=== PATIENT | male | born 1950 | race Caucasian/White ===

== ENCOUNTER 2025-03-16 18:13 | Inpatient (IN) | payer OTHER ==
[~2025-03-16] VITALS: Ht 175.3 cm; Wt 89.4 kg
[2025-03-16 18:30] VITALS: PULSE 59; RESP 12; O2SAT 94
--- NOTE | 2025-03-16 19:24 | DVH ---
CHEST RADIOGRAPH Indication: chest pain Technique: Single frontal view of the chest was obtained Comparison: None FINDINGS: Lines and Tubes: None Lungs: No focal consolidation. Pleura: No effusion. No pneumothorax. Cardiomediastinal contours: Unremarkable Bones: No acute osseous abnormality. IMPRESSION: No acute cardiopulmonary disease.
[2025-03-16 19:25] VITALS: PULSE 69
[2025-03-16 19:35] LABS: Hematocrit 47.0 % (41.0-53.0); Hemoglobin 15.6 g/dL (13.5-17.5); Mean Corpuscular Hemoglobin 29.8 pg (28.0-32.0); Mean Corpuscular Volume 89.7 fL (80.0-100.0); Nucleated Red Blood Cells % 0.1 %
--- NOTE | 2025-03-16 19:47 | ED.PDOC ---
History of Present Illness HPI Comments 74-year-old male presents with the ED via EMS with a chief complaint of chest pain onset 1 day. Per EMS, patient was transferred from [facility] due to elevated troponin levels of 76. Upon ED arrival, patient states he is currently not experiencing any chest pain or shortness of breath. He was experiencing chest pain last night, went to [facility]. For the past 3 weeks, patient has been experiencing chest tightness, jaw tightness, shortness of breath with exertion. Denies fever, chills, nausea, vomiting, diarrhea, dizziness, headache, Blurred vision, numbness/ tingling, leg swelling. No other symptoms or modifying factors present at this time PHYSICAL EXAM GEN: Normal general appearance. NAD. HEAD: NCAT. EYES: PERRL, EOMI, with no strabismus. ENMT: TMs, nares, and OP normal. Mucous membranes moist. Normal gums, mucosa, palate. NECK: Supple, with no masses. CV: Regular rate and rhythm, no murmurs LUNGS: No respiratory distress. Clear to auscultation bilaterally, no no wheezing rhonchi or rales ABD: Soft, nontender, nondistended., normal bowel sounds, no masses or organomegaly. : (deferred) SKIN: Warm, appropriate color for ethnicity. No skin rashes or abnormal lesions. MSK: Normal extremities & spine. NEURO: Moving all extremities symmetrically. Normal muscle strength and tone. REVIEW OF SYSTEMS: General: No fever, no chills, or fatigue HEENT: No sore throat, no earache, no congestion, no neck pain. Cardiac: chest pain. No palpitations. Lungs: shortness of breath. no cough. GI: No nausea, no vomiting, no diarrhea, no constipation, no abdominal pain : No dysuria, frequency, or urgency. No hematuria. Musculoskeletal: No joint pain , no joint swelling, no extremity edema. Skin: No rash, no itching. Neuro: No headache, no dizziness, no weakness (And as sated in HPI) Chief Complaint: Chest Pain Time Seen by MD: 19:35 Reviewed Notes: Medications, Allergies Allergies: Coded Allergies: Penicillins (Verified Allergy, Unknown, 03/16/25) Mode of Arrival: EMS Severity: Moderate Timing: Days Duration: Since onset Prehospital treatment: None Past Medical History PAST MEDICAL HISTORY: HTN Surgical History: Denies all surgeries Family History Family History: Reviewed,noncontributory to illness, No family hx of Cancer, No family hx of DM, No family hx of Heart joe, No family hx of HTN, No family hx ofKidney joe, No family hx of Liver joe, No family hx of Lung joe, No family hx of Stroke Social History Smoker: Quit Greater Than 1 Year, Cigarettes Alcohol: Denies ETOH Use Drugs: Denies Drug Use Lives In: Assisted Care Was a procedure done? Was a procedure done?: No Differential Dx Considerations may include: Differential diagnoses considered include acute ischemic coronary syndrome, aortic dissection, cardiac tamponade, mediastinitis, pulmonary embolus, pneumothorax, tension pneumothorax, esophageal rupture, coronary artery vasospasm, myocarditis, pericarditis, pneumonia, pulmonary edema, esophageal tear, pancreatitis, aortic stenosis, dilated cardiomyopathy, hypertrophic cardiomyopathy, mitral valve prolapse, malignancy, pleuritis, pneumomediastinum, primary pulmonary hypertension, cholecystitis, esophageal spasm, esophagus, gastritis, GERD, peptic ulcer disease, costochondritis, fibromyalgia, rib fracture, herpes zoster, radicular syndromes, thoracic outlet syndrome, somatization. X-Ray, Labs, Meds, VS Vital Signs Date Time Temp Pulse Resp B/P (MAP) Pulse Ox O2 Delivery O2 Flow Rate FiO2 03/16/25 19:46 68 03/16/25 19:25 69 Room Air* 0 21 03/16/25 18:44 66 03/16/25 18:34 98.4 63 14 156/76 99 98.4 03/16/25 18:30 59 11 145/56 (85) 94 03/16/25 18:30 98.0 59 12 145/56 (85) 94 98.0 03/16/25 18:30 59 12 94 Room Air* 0 21 Lab Test 03/16/25 19:09 Range/Units White Blood Count 9.4 4.4-10.8 10^3/uL Red Blood Count 5.24 4.5-5.90 10^6/uL Hemoglobin 15.6 13.5-17.5 g/dL Hematocrit 47.0 41.0-53.0 % Mean Corpuscular Volume 89.7 80.0-100.0 fL Mean Corpuscular Hemoglobin 29.8 28.0-32.0 pg Mean Corpuscular Hemoglobin Concent 33.2 32.0-36.0 g/dL Red Cell Distribution Width 15.2 H 11.8-14.3 % Platelet Count 233 140-450 10^3/uL Mean Platelet Volume 7.2 6.9-10.8 fL Neutrophils (%) (Auto) 63.2 37.0-80.0 % Lymphocytes (%) (Auto) 24.6 10.0-50.0 % Monocytes (%) (Auto) 7.0 0.0-12.0 % Eosinophils (%) (Auto) 4.4 0.0-7.0 % Basophils (%) (Auto) 0.8 0.0-2.0 % Neutrophils # (Auto) 6.0 1.6-8.6 10 ^3/uL Lymphocytes # (Auto) 2.3 0.4-5.4 10 ^3/uL Monocytes # (Auto) 0.7 0-1.3 10 ^3/uL Eosinophils # (Auto) 0.4 0-0.8 10 ^3/uL Basophils # (Auto) 0.1 0-0.2 10 ^3/uL Nucleated Red Blood Cells 0.1 % Sodium Level Pending Potassium Level Pending Chloride Level Pending Carbon Dioxide Level Pending Anion Gap Pending Blood Urea Nitrogen Pending Creatinine Pending Glomerular Filtration Rate Calc Pending BUN/Creatinine Ratio Pending Serum Glucose Pending Calcium Level Pending Total Bilirubin Pending Aspartate Amino Transferase (AST) Pending Alanine Aminotransferase (ALT) Pending Alkaline Phosphatase Pending Troponin I High Sensitivity Pending B-Type Natriuretic Peptide Pending Total Protein Pending Albumin Pending Time of 1ST Reevaluation: 20:05 Reevaluation 1ST: Unchanged Patient Education/Counseling: Diagnosis, Treatment, Need For Follow Up Family Education/Counseling: No Family Present SEPSIS Sepsis Screen Date sepsis recognized/suspect: Mar 16, 2025 Time Sepsis recognized/suspect: 1814 Recent Procedure: No On Antibiotic Therapy: No Respiratory Rate >20: No Heart Rate >90: No Temp<36 C (96.8 F) or >38.3 C: No SBP <90 or MAP <65 mmHG: No New Acute Mental Status Change: No Is the patient on CPAP, BIPAP,: No Physician Orders Chest Portable (03/16/25 18:45) Comprehensive Metabolic Panel (03/16/25 18:45) B-Type Natriuretic Peptide (03/16/25 18:45) Urinalysis (03/16/25 18:45) Troponin-I Hs (03/16/25 18:45) Electrocardigram (03/16/25 18:45) Troponin-I Hs (03/16/25 19:45) Troponin-I Hs (03/16/25 21:45) Electrocardigram (03/16/25 19:45) Electrocardigram (03/16/25 21:45) Basic Metabolic Panel (03/16/25 18:45) Vital Signs Date Time Temp Pulse Resp B/P (MAP) Pulse Ox O2 Delivery O2 Flow Rate FiO2 03/16/25 19:46 68 03/16/25 19:25 69 Room Air* 0 21 03/16/25 18:44 66 03/16/25 18:34 98.4 63 14 156/76 99 98.4 03/16/25 18:30 59 11 145/56 (85) 94 03/16/25 18:30 98.0 59 12 145/56 (85) 94 98.0 03/16/25 18:30 59 12 94 Room Air* 0 21 Laboratory Tests Test 03/16/25 19:09 White Blood Count 9.4 10^3/uL (4.4-10.8) Departure 1 Departure Time of Disposition: 19:56 Impression: Primary Impression: Chest pain Additional Impression: Elevated troponin Disposition: ADMITTED INPATIENT Condition: Stable Comments MDM: [age] year Male transferred from [facility] for elevated troponin, Cardiology consultation. Patient admitted to hospitalist service for further treatment, evaluation and monitoring. Extensive evaluation was performed in attempt to identify or rule out: (See differential diagnosis section) The following tests were ordered, and results were reviewed by me and discussed with patient: (See diagnostic results section) The following test were independently interpreted by me: EKG, chest x-ray-no acute disease I reviewed and agreed with the following test results read by other providers: Chest tube for I reviewed the following notes from the pt's past medical encounters: Encounter today at [facility] Additional information was gathered from interviewing the following independent historians: N/A Discussion of management or test interpretation with external physician/other qualified health care transition coordinator: N/A Addressed an acute or chronic illness that poses a threat to life or bodily function: Chest Pain concerning for ACS Decision regarding hospitalization or escalation of hospital level of care: Risk and benefits of admission for further treatment of patient's condition was considered. Due to patient's current clinical condition, high risk of decline and poor outcome if discharged and need for further inpatient management and monitoring, patient will be admitted to the hospital. Critical Care Note Critical Care Time?: No Stability Stability form required: No Heart Score Heart Score: Heart Score Response (Comments) Value History N/A 0 EKG N/A 0 Age N/A 0 Risk Factors N/A 0 Troponin N/A 0 Total 0 I personally scribed for BEVERLY MAURO MD ([email or web address]) on 03/16/25 at 19:47. Electronically submitted by Jessica Malik ([email or web address]). BEVERLY MAURO MD Mar 16, 2025 19:47
[2025-03-16 19:59] LABS: Alanine Aminotransferase 18 U/L (7-40); Albumin 3.9 g/dL (3.2-4.8); Alkaline Phosphatase 56 U/L (46-116); Anion Gap 12 (5-15); BUN/Creatinine Ratio 9.4 (10.0-20.0); Bilirubin, Total 0.7 mg/dL (0.2-1.0); Blood Urea Nitrogen 11 mg/dL (9-23); Calcium 9.1 mg/dL (8.7-10.4); Carbon Dioxide 23 mmol/L (20-31); Glucose 93 mg/dL (74-106); Potassium 3.8 mmol/L (3.5-5.1); Sodium 143 mmol/L (136-145); Total Protein 6.5 g/dL (5.7-8.2)
[2025-03-16 20:01] LABS: Chloride 108 mmol/L (98-107)
[2025-03-16] MEDS ORDERED: hydrALAZINE HCL 20 MG/ML VL IV PRN (22:30)
[2025-03-16] MEDS ORDERED: NITROGLYCERIN 0.4 MG SL TAB SL PRN (22:30)
[2025-03-16] MEDS ORDERED: HYDROcodone-ACET 5/325MG TAB PO PRN (22:30)
[2025-03-16] MEDS ORDERED: MORPHINE SULFATE INJ 2 MG/ml SYRG IV PRN (22:30)
[2025-03-16] MEDS ORDERED: ACETAMINOPHEN 325 MG TAB PO PRN (22:30)
[2025-03-16 23:08] LABS: INR 1.17 (0.9-1.15); Prothrombin Time 12.2 sec (9.3-11.8)
[2025-03-17] VITALS (16 sets, daily range): BP systolic 110–154; BP diastolic 57–87; PULSE 63–91; RESP 13–19; TEMP 98–98.2; O2SAT 93–98
[2025-03-17] MEDS ORDERED: IPRATROPIUM BROM 0.5 MG/2.5ML INH SOL NEB PRN (00:45)
[2025-03-17] MEDS ORDERED: ALBUTEROL SULF 2.5 MG/0.5ML(0.5%) NEB SOLN NEB PRN (00:45)
--- NOTE | 2025-03-17 00:45 | DVHHP2 ---
KIM WOOTEN DELICATESSEN GOODS STOCK CLERK 03/17/25 0045: History of Present Illness Reason for Visit: Chest pain History of Present Illness 74-year-old male with past medical history of hypertension, hyperlipidemia, enlarged prostate presents with complaints of chest pain radiating to the jaw x3 weeks. Patient was transferred from [facility] as higher level of care for cardiac evaluation for elevated troponin levels and chest pain. Chest pain has remained constant pressure. 10/12. During the emergency department evaluation troponins elevated 180/181/179. The patient denies any fevers, chills, dizziness, syncope, shortness of breath, palpitations, nausea, vomiting, leg swelling. Is not being followed by Cardiology. Cardiovascular: HTN, hyperipidemia Smoke: Quit ALCOHOL: occassional (2-3 beers per day) Lives: with Family Review of Systems Constitutional: Yes: Fever, Chills, Sweats, Weakness, Malaise, Other Eyes: Pain, Vision change, Conjunctivae inflammation, Eyelid inflammation, Other, Redness ENT: Ear pain, Ear discharge, Nose pain, Nose discharge, Nose congestion, Mouth pain, Mouth swelling, Throat pain, Throat swelling, Other Respiratory: Cough, Dry, Shortness of breath, SOB with excertion, Wheezing, Hemoptysis, Pleuritic Pain, Sputum, Wheezing, Other Cardiovascular: Chest Pain, Other (Left-sided jaw pain); No: Palpitations, Orthopnea, Paroxysmal Noc. Dyspnea, Edema, Lt Headedness Gastrointestinal: No: Nausea, Vomiting, Abdominal Pain, Diarrhea, Constipation, Melena, Hematochezia, Other Genitourinary: No Dysuria, No Frequency, No Incontinence, No Hematuria, No Retention, No Other Musculoskeletal: No: other, neck pain, shoulder pain, arm pain, back pain, hand pain, leg pain, foot pain Skin: No: Rash, Lesions, Jaundice, Bruising, Other Neurological: No: Weakness, Numbness, Incoordination, Change in speech, Confusion, Seizures, Other Allergies: Coded Allergies: Penicillins (Verified Allergy, Unknown, 03/16/25) Medications Current Medications Medications Dose Ordered Sig/Rick Route Start Time Stop Time Status Last Admin Dose Admin Nitroglycerin 0.4 mg Q5MINP PRN SL 03/16/25 22:30 Morphine Sulfate 2 mg Q30M PRN IV 03/16/25 22:30 Acetaminophen 650 mg Q6HPRN PRN PO 03/16/25 22:30 Acetaminophen/ Hydrocodone Bitart 1 tab Q6HP PRN PO 03/16/25 22:30 Aspirin 81 mg DAILY PO 03/17/25 10:00 Hydralazine HCl 10 mg Q4HPRN PRN IV 03/16/25 22:30 Exam Vital Signs Vital Signs Date Time Temp Pulse Resp B/P (MAP) Pulse Ox O2 Delivery O2 Flow Rate FiO2 03/16/25 22:00 63 12 128/54 (78) 96 03/16/25 20:00 98.1 98.1 03/16/25 19:25 Room Air* 0 21 General Appearance: Alert, Oriented X3, Cooperative, mild distress HEENT: Atraumatic, PERRLA, EOMI Respiratory: Clear to auscultation, Normal air movement Cardiovascular: Regular rate, Normal S1, Normal S2 Abdominal: Normal bowel sounds, Soft, No tenderness Extremities: No clubbing, No cyanosis, No edema, Normal pulses Skin: No breakdown Neuro: Normal speech, Strength at 5/5 X4 ext, Normal tone Psych/Mental Status: Mental status NL, Mood NL Labs/Xrays Labs Test 03/16/25 22:00 03/16/25 19:09 Range/Units Prothrombin Time 12.2 H 9.3-11.8 sec Prothrombin Time INR 1.17 H 0.9-1.15 Troponin I High Sensitivity 179 *H </=54 ng/L White Blood Count 9.4 4.4-10.8 10^3/uL Red Blood Count 5.24 4.5-5.90 10^6/uL Hemoglobin 15.6 13.5-17.5 g/dL Hematocrit 47.0 41.0-53.0 % Mean Corpuscular Volume 89.7 80.0-100.0 fL Mean Corpuscular Hemoglobin 29.8 28.0-32.0 pg Mean Corpuscular Hemoglobin Concent 33.2 32.0-36.0 g/dL Red Cell Distribution Width 15.2 H 11.8-14.3 % Platelet Count 233 140-450 10^3/uL Mean Platelet Volume 7.2 6.9-10.8 fL Neutrophils (%) (Auto) 63.2 37.0-80.0 % Lymphocytes (%) (Auto) 24.6 10.0-50.0 % Monocytes (%) (Auto) 7.0 0.0-12.0 % Eosinophils (%) (Auto) 4.4 0.0-7.0 % Basophils (%) (Auto) 0.8 0.0-2.0 % Neutrophils # (Auto) 6.0 1.6-8.6 10 ^3/uL Lymphocytes # (Auto) 2.3 0.4-5.4 10 ^3/uL Monocytes # (Auto) 0.7 0-1.3 10 ^3/uL Eosinophils # (Auto) 0.4 0-0.8 10 ^3/uL Basophils # (Auto) 0.1 0-0.2 10 ^3/uL Nucleated Red Blood Cells 0.1 % Sodium Level 143 136-145 mmol/L Potassium Level 3.8 3.5-5.1 mmol/L Chloride Level 108 H 98-107 mmol/L Carbon Dioxide Level 23 20-31 mmol/L Anion Gap 12 5-15 Blood Urea Nitrogen 11 9-23 mg/dL Creatinine 1.17 0.700-1.30 mg/dL Glomerular Filtration Rate Calc 65 >90 mL/min BUN/Creatinine Ratio 9.4 L 10.0-20.0 Serum Glucose 93 74-106 mg/dL Calcium Level 9.1 8.7-10.4 mg/dL Total Bilirubin 0.7 0.2-1.0 mg/dL Aspartate Amino Transferase (AST) 18 13-40 U/L Alanine Aminotransferase (ALT) 18 7-40 U/L Alkaline Phosphatase 56 46-116 U/L B-Type Natriuretic Peptide 71.30 0-100 pg/mL Total Protein 6.5 5.7-8.2 g/dL Albumin 3.9 3.2-4.8 g/dL SEPSIS Sepsis Screen Date sepsis recognized/suspect: Mar 16, 2025 Time Sepsis recognized/suspect: 1814 Recent Procedure: No On Antibiotic Therapy: No Respiratory Rate >20: No Heart Rate >90: No Temp<36 C (96.8 F) or >38.3 C: No SBP <90 or MAP <65 mmHG: No New Acute Mental Status Change: No Is the patient on CPAP, BIPAP,: No Physician Orders Chest Portable (03/16/25 18:45) Urinalysis (03/16/25 18:45) Electrocardigram (03/16/25 18:45) Electrocardigram (03/16/25 19:45) Electrocardigram (03/16/25 21:45) Admit (03/16/25:) Code Status (03/16/25:) Vital Signs .PER UNIT PROTOCOL (03/16/25:) Review Orders With Adm.Md (03/16/25:) Notify Md Of Changes From Base (03/16/25:) Advance Directive (03/16/25:) Patient Condition (03/16/25:) Allergies (03/16/25:) Nitroglycerin Sublingual (Ntrostat Subli (03/16/25:) Morphine Sulfate Injection (03/16/25) Stat Ekg For Chest Pain (03/16/25:) Notify Md Of Changes From Base (03/16/25:) Bias Cutter Helper For 24 Hours (03/16/25:) Emergency Dysrhythmia Protocol (03/16/25:) Rhythm Strips Once Every Shift (03/16/25:) Oxygen By Nasal Cannula (03/16/25:) Basic Metabolic Panel (03/17/25 05:00) Basic Metabolic Panel (03/18/25 05:00) Basic Metabolic Panel (03/19/25 05:00) Basic Metabolic Panel (03/20/25 05:00) Basic Metabolic Panel (03/21/25 05:00) Complete Blood Count (03/17/25 05:00) Complete Blood Count (03/18/25 05:00) Complete Blood Count (03/19/25 05:00) Complete Blood Count (03/20/25 05:00) Complete Blood Count (03/21/25 05:00) Troponin-I Hs (03/16/25 06:00) Troponin-I Hs (03/16/25 14:00) Echo 2d Mode Cardiac Dop (03/16/25:) * Cardiology Consult (03/16/25:) Acetaminophen Tablet (Tylenol Tablet) (03/16/25 22:30) Hydrocodone-Acet 5/325mg Tab ([place] 32 (03/16/25:30) Npo After Midnight (03/16/25 22:19) Npo (Nothing By Mouth) Diet (03/17/25 Breakfast) Aspirin Tablet (03/17/25 10:00) Hydralazine Injection (Apresoline Inject (03/16/25 22:30) Atorvastatin (Lipitor) (03/17/25 22:00) Tamsulosin Hydrochloride (Flomax) (03/17/25 18:00) Albuterol Medneb (Ventolin Medneb) (03/17/25 00:45) Ipratropium Medneb (Atrovent Medneb) (03/17/25 00:45) Vital Signs Date Time Temp Pulse Resp B/P (MAP) Pulse Ox O2 Delivery O2 Flow Rate FiO2 03/16/25 22:00 63 12 128/54 (78) 96 03/16/25 21:43 73 03/16/25 20:00 98.1 69 12 138/70 (92) 95 98.1 03/16/25 19:46 68 03/16/25 19:25 69 Room Air* 0 21 03/16/25 18:44 66 03/16/25 18:34 98.4 63 14 156/76 99 98.4 03/16/25 18:30 59 11 145/56 (85) 94 03/16/25 18:30 98.0 59 12 145/56 (85) 94 98.0 03/16/25 18:30 59 12 94 Room Air* 0 21 Laboratory Tests Test 03/16/25 19:09 White Blood Count 9.4 10^3/uL (4.4-10.8) Assessment/Plan Assessment/Plan Chest pain Elevated troponin Hypertension Plan Admit telemetry Cardiology consult. Echocardiogram. ASA, statin. As needed antihypertensives for optimal BP management. Physical therapy evaluation GI PPX Protonix / DVT PPX Lovenox Plan discussed with: Patient My Orders Orders - KIM WOOTEN NP Procedure Category Date Status Time Admit ADMIT 03/16/25 Transmitted 22:19 Code Status CODE 03/16/25 Transmitted 22:19 Vital Signs [facility] 03/16/25 In Process 22:19 Review Orders With LONNY 03/16/25 In Process Adm. 22:19 Notify Of Changes LONNY 03/16/25 In Process From Base 22:19 Advance Directive [facility] 03/16/25 In Process 22:19 Patient Condition ORDERS 03/16/25 Transmitted 22:19 Allergies LONNY 03/16/25 In Process 22:19 Nitroglycerin PHA 03/16/25 In Process Sublingual (Ntrostat 22:30 Morphine Sulfate PHA 03/16/25 In Process Injection 22:30 Stat Ekg For Chest [facility] 03/16/25 In Process Pain 22:19 Notify Of Changes [facility] 03/16/25 In Process From Base 22:19 Bias Cutter Helper For [facility] 03/16/25 In Process 24 Hours 22:19 Emergency Dysrhythmia [facility] 03/16/25 In Process Protocol 22:19 Rhythm Strips Once [facility] 03/16/25 In Process Every Shift 22:19 Oxygen By Nasal RT 03/16/25 Transmitted Cannula 22:19 Basic Metabolic Panel LAB 03/17/25 Logged 05:00 Basic Metabolic Panel LAB 03/18/25 Verified 05:00 Basic Metabolic Panel LAB 03/19/25 Verified 05:00 Basic Metabolic Panel LAB 03/20/25 Verified 05:00 Basic Metabolic Panel LAB 03/21/25 Verified 05:00 Complete Blood Count LAB 03/17/25 Logged 05:00 Complete Blood Count LAB 03/18/25 Verified 05:00 Complete Blood Count LAB 03/19/25 Verified 05:00 Complete Blood Count LAB 03/20/25 Verified 05:00 Complete Blood Count LAB 03/21/25 Verified 05:00 Troponin-I Hs LAB 03/16/25 Logged 06:00 Troponin-I Hs LAB 03/16/25 Logged 14:00 Echo 2d Mode Cardiac US 03/16/25 Logged DOP 22:19 * Cardiology Consult CONS 03/16/25 Transmitted 22:19 Acetaminophen Tablet PHA 03/16/25 In Process (Tylenol Tablet) 22:30 Hydrocodone-Acet PHA 03/16/25 In Process 5/325mg Tab ([place] 22:30 Npo After Midnight LONNY 03/16/25 In Process 22:19 Npo (Nothing By DIET 03/17/25 Transmitted Mouth) Diet Breakfast Aspirin Tablet PHA 03/17/25 In Process 10:00 Hydralazine Injection PHA 03/16/25 In Process (Apresoline Inject 22:30 Atorvastatin (Lipitor) PHA 03/17/25 Verified 22:00 Tamsulosin PHA 03/17/25 Verified Hydrochloride (Flomax) 18:00 Albuterol Medneb PHA 03/17/25 Verified (Ventolin Medneb) 00:45 Ipratropium Medneb PHA 03/17/25 Verified (Atrovent Medneb) 00:45 Date of Service: Mar 17, 2025 Billing Provider: NADEEM DIAMOND MD Common Visit Codes: NOT BILLABLE NADEEM DIAMOND MD 03/17/25 1159: Review of Systems Allergies: Coded Allergies: Penicillins (Verified Allergy, Unknown, 03/16/25) Additional Comments Additional Comments Additional Comments Patient is seen and evaluated by me earlier today and discussed with the selenium plant operator. Patient is seen evaluated and admitted by nurse practitioner egg breaker for exertional angina and elevated troponins. I agree with his evaluation, documentation, assessment and care plan as outlined. KIM WOOTEN DELICATESSEN GOODS STOCK CLERK Mar 17, 2025 00:45 NADEEM DIAMOND MD Mar 17, 2025 11:59
[2025-03-17 05:47] LABS: Hematocrit 48.4 % (41.0-53.0); Hemoglobin 16.4 g/dL (13.5-17.5); Mean Corpuscular Hemoglobin 30.4 pg (28.0-32.0); Mean Corpuscular Volume 89.5 fL (80.0-100.0); Nucleated Red Blood Cells % 0.1 %
[2025-03-17 05:57] LABS: Calcium 9.4 mg/dL (8.7-10.4); Chloride 106 mmol/L (98-107); Potassium 3.7 mmol/L (3.5-5.1); Sodium 143 mmol/L (136-145)
[2025-03-17 05:58] LABS: Anion Gap 12 (5-15); Carbon Dioxide 25 mmol/L (20-31)
[2025-03-17 06:03] LABS: BUN/Creatinine Ratio 6.7 (10.0-20.0); Glucose 94 mg/dL (74-106)
[2025-03-17 06:11] LABS: Blood Urea Nitrogen 8 mg/dL (9-23)
--- NOTE | 2025-03-17 07:11 | ECG ---
[facility] Test Date: 2025-03-16 Test Time: 19:46:58 Pat Name: RAFI SALOMON Department: ED Room: 0217T Gender: M Production Dispatcher: FELY : 1950 Requested By: ARLETH LOPEZ Order Number: [id number] Reading MD: Rachid Hill Measurements Intervals [place] Rate: 68 P: 33 ME: 155 QRS: 9 QRSD: 86 T: 6 QT: 412 QTc: 439 Interpretive Statements Sinus rhythm Borderline T wave abnormalities Electronically Signed On 03-18-2025 15:44:59 PST by Rachid Hill Please click the below link to view image of tracing.
--- NOTE | 2025-03-17 07:11 | ECG ---
[facility] Test Date: 2025-03-16 Test Time: 21:43:02 Pat Name: RAFI SALOMON Department: ED Room: 0217T Gender: M Skiagrapher: FELY : 1950 Requested By: ARLETH LOPEZ Order Number: [id number] Reading MD: Rachid Hill Measurements Intervals [place] Rate: 73 P: 36 ID: [id number] QRS: 28 QRSD: 87 T: 31 QT: 410 QTc: 452 Interpretive Statements Sinus rhythm Borderline T wave abnormalities Electronically Signed On 03-18-2025 15:45:12 PST by Rachid Hill Please click the below link to view image of tracing.
[2025-03-17 07:38] LABS: Urine Protein, UAD Negative (Negative)
[2025-03-17 11:21] LABS: Triglycerides 143.0 mg/dL (< 150)
[2025-03-17 11:22] LABS: Magnesium 2.3 mg/dL (1.6-2.6)
[2025-03-17 11:23] LABS: Cholesterol 124.0 mg/dL (< 200)
[2025-03-17 11:24] LABS: HDL Cholesterol 37.0 mg/dL (40-59)
--- NOTE | 2025-03-17 11:30 | DVHCONRES ---
Date Seen: Mar 17, 2025 Resident Creating Document: ROSE ZHOU RESIDENT Reason for Consultation Chest pain and elevated troponins History of Present Illness RAFI SALOMON is a 74 years old male with a PMH of HTN, HLD, enlarged prostate presented to the ED with the chief complaints of chest pain for 2days. Patient reported he has been having on and off chest pain and shortness of breath for last 2-3 weeks, thought of asthma exacerbation and then went to clinic to change asthma medication but no relief for last 2 days patient has been having substernal chest pain which is dull aching radiating to jaw associated with the shortness of breath but no aggravating factors relieved by taking rest so which prompted him to visit ED. The patient initially went to [facility], they sent here for higher level of care due to elevated troponins. Arrival to [facility] ED Troponins 180 > 181 > 179 > 149 and BNP 71 and ordered echocardiogram. EKG showed no significant ischemic changes. PMH: As above PSH: Noncontributory Social history: Lives at home. Denies smoking, alcohol and other drug abuse: ( patient is ex-smoker used to smoke 1-2 pack per day for 30 years but quit for 15 years ) Family history: Father had heart disease Allergies: Penicillin Home medications: Verapamil 120 mg, Lipitor 10 mg, zinc ROS: Patient seen and examined at the bedside. Patient is currently reporting dull chest pain and mild shortness of breath which is improved since admission but rest of ROS is negative. Allergies: Coded Allergies: Penicillins (Verified Allergy, Unknown, 03/16/25) Current Medications Current Medications Medications (Trade) Dose Ordered Sig/Rick Route PRN Reason Start Time Stop Time Status Last Admin Nitroglycerin (Ntrostat Sublingual) 0.4 mg Q5MINP PRN SL FOR CHEST PAIN 03/16/25 22:30 Morphine Sulfate 2 mg Q30M PRN IV FOR CHEST PAIN 03/16/25 22:30 Acetaminophen (Tylenol Tablet) 650 mg Q6HPRN PRN PO mild pain 03/16/25 22:30 Acetaminophen/ Hydrocodone Bitart ([place] 5/325MG Tab) 1 tab Q6HP PRN PO moderate pain 03/16/25 22:30 Aspirin 81 mg DAILY PO 03/17/25 10:00 03/17/25 09:54 Hydralazine HCl (Apresoline Injection) 10 mg Q4HPRN PRN IV SBP > 160 03/16/25 22:30 Atorvastatin Calcium (Lipitor) 20 mg HS PO 03/17/25 22:00 Tamsulosin HCl (Flomax) 0.4 mg QPM PO 03/17/25 18:00 Albuterol (Ventolin Medneb) 2.5 mg Q4HPRN PRN NEB SHORTNESS OF BREATH 03/17/25 00:45 Ipratropium [place] (Atrovent Medneb) 0.5 mg Q4HPRN PRN NEB SHORTNESS OF BREATH 03/17/25 00:45 Melatonin (Melatonin) 5 mg HS PO 03/17/25 22:00 Vital Signs Vital Signs Date Time Temp Pulse Resp B/P (MAP) Pulse Ox O2 Delivery O2 Flow Rate FiO2 03/17/25 10:35 97.3 73 19 142/73 (96) 95 97.3 03/17/25 09:43 Room Air 03/17/25 09:43 0 21 Physical Exam Pt is lying on bed General Appearance: Alert, Oriented X3, Cooperative, Not in acute distress HEENT: Atraumatic, Mucous membranes moist/pink Respiratory: Clear to auscultation, Normal air movement, No added sounds Cardiovascular: Regular rate, Normal S1, Normal S2, No murmurs Abdominal: Active bowel sounds, Soft, no distention, no tenderness Extremities: No edema, Normal pulses, No tenderness/swelling Skin: No Significant rash, except past surgical scars Neuro: Normal speech, sensorimotor deficits none Psych/Mental Status: Mental status NL, Mood NL Nurse was there as technology administrator during examination Labs/Diagnostic Data Labs Test 03/17/25 05:06 03/16/25 22:00 03/16/25 19:09 03/16/25 06:46 Range/Units White Blood Count 9.8 4.4-10.8 10^3/uL Red Blood Count 5.41 4.5-5.90 10^6/uL Hemoglobin 16.4 13.5-17.5 g/dL Hematocrit 48.4 41.0-53.0 % Mean Corpuscular Volume 89.5 80.0-100.0 fL Mean Corpuscular Hemoglobin 30.4 28.0-32.0 pg Mean Corpuscular Hemoglobin Concent 33.9 32.0-36.0 g/dL Red Cell Distribution Width 15.1 H 11.8-14.3 % Platelet Count 234 140-450 10^3/uL Mean Platelet Volume 7.2 6.9-10.8 fL Neutrophils (%) (Auto) 68.8 37.0-80.0 % Lymphocytes (%) (Auto) 20.3 10.0-50.0 % Monocytes (%) (Auto) 6.6 0.0-12.0 % Eosinophils (%) (Auto) 3.6 0.0-7.0 % Basophils (%) (Auto) 0.7 0.0-2.0 % Neutrophils # (Auto) 6.8 1.6-8.6 10 ^3/uL Lymphocytes # (Auto) 2.0 0.4-5.4 10 ^3/uL Monocytes # (Auto) 0.6 0-1.3 10 ^3/uL Eosinophils # (Auto) 0.4 0-0.8 10 ^3/uL Basophils # (Auto) 0.1 0-0.2 10 ^3/uL Nucleated Red Blood Cells 0.1 % Sodium Level 143 136-145 mmol/L Potassium Level 3.7 3.5-5.1 mmol/L Chloride Level 106 98-107 mmol/L Carbon Dioxide Level 25 20-31 mmol/L Anion Gap 12 5-15 Blood Urea Nitrogen 8 L 9-23 mg/dL Creatinine 1.20 0.700-1.30 mg/dL Glomerular Filtration Rate Calc 63 >90 mL/min BUN/Creatinine Ratio 6.7 L 10.0-20.0 Serum Glucose 94 74-106 mg/dL Calcium Level 9.4 8.7-10.4 mg/dL Magnesium Level 2.3 1.6-2.6 mg/dL Troponin I High Sensitivity 149 *H </=54 ng/L Triglycerides Level 143 < 150 mg/dL Cholesterol Level 124 < 200 mg/dL LDL Cholesterol 69 < 100 mg/dL HDL Cholesterol 37 L 40-59 mg/dL Prothrombin Time 12.2 H 9.3-11.8 sec Prothrombin Time INR 1.17 H 0.9-1.15 Total Bilirubin 0.7 0.2-1.0 mg/dL Aspartate Amino Transferase (AST) 18 13-40 U/L Alanine Aminotransferase (ALT) 18 7-40 U/L Alkaline Phosphatase 56 46-116 U/L B-Type Natriuretic Peptide 71.30 0-100 pg/mL Total Protein 6.5 5.7-8.2 g/dL Albumin 3.9 3.2-4.8 g/dL Urine Color Light-yellow Yellow Urine Clarity Clear Clear Urine pH 6.0 5.0-9.0 Urine Specific [place] 1.017 1.001-1.035 Urine Protein Negative Negative Urine Ketones Negative Negative Urine Blood Negative Negative /uL Urine Nitrite Negative Negative Urine Bilirubin Negative Negative Urine Urobilinogen Normal Negative mg/dL Urine Leukocyte Esterase Negative Negative /uL Urine RBC 1 0 - 3 /hpf Urine Microscopic WBC 2 0-3 /HPF Urine Squamous Epithelial Cells Few <5 /hpf Urine Bacteria None seen None Seen /hpf Urine Mucus Few None Seen Urine Glucose Normal Normal mg/dL Assessment Chest pain rule out ACS Unstable angina NSTEMI type 1 versus 2 Hypertension HLD Plan/recommendations We will continue with the following plan/recommendations (Dr. Hill): Echocardiogram to evaluate cardiac function Chest pain protocol Aspirin Lipitor Blood pressure management Aggressive risk factor modification we will schedule stress test depend next availability Discussed with Dr. Hill. Plan discussed with: Patient, Spouse Date of Service: Mar 17, 2025 Billing Provider: EMA HILL Sr., MD Common Visit Codes: [id number] CARE 30-74 MIN ROSE ZHOU RESIDENT Mar 17, 2025 11:30
[2025-03-17] MEDS: D5W/SOD CHL 0.45% 1,000 ML IV SCH (14:32)
[2025-03-17] MEDS: LIDOCAINE 2%HCL (LOCAL ANESTH.) INJ 20ML MDV ONE (16:41)
[2025-03-17] MEDS: IODIXANOL 320MG/ML 100ML BTL IV ONE (16:42)
[2025-03-17] MEDS: VERAPAMIL 2.5MG/ML INJ 2ML VIAL IV ONE (17:24)
[2025-03-17] MEDS: HEPARIN SODIUM (PORCINE) 5000 UNITS/ML 1ML VIAL ONE ×2 (17:24→18:09)
[2025-03-17] MEDS: ANGIOMAX 250 MG VIAL IV ONE (17:27)
[2025-03-17] MEDS: fentaNYL CITRATE 100 MCG/2 ML VL ONE (17:28)
[2025-03-17] MEDS: MIDAZOLAM HCL 2MG/2ML 2ml VIAL (1mg/ml) ONE (17:29)
[2025-03-17] MEDS: SODIUM CHL 0.9% 0 ML ONE (17:30)
[2025-03-17] MEDS: HEPARIN DRIP/D5W 100UNITS/ML 250 ML IV ONE (18:09)
--- NOTE | 2025-03-17 18:11 | DVHOP2 ---
Operative Report - 2 Report Details Date: 03/17/25 Preop Diagnosis: Chest pain Postop Diagnosis: Severe coronary artery disease Surgeon: Ema Hill MD Anesthesiologist: Conscious sedation Anesthesia: Mac, Local Consent: The patient was informed of the risks and benefits of the procedure. These include but are not limited to complications of anesthesia, postoperative infection, incomplete relief of symptoms, recurrence of symptoms, damage to blo od vessels, nerves and tendons, deep venous thrombosis, pulmonary embolism and possible need for repeat surgery in the future. Complications: No complications Findings: Severe three-vessel coronary artery disease Indications for Surgery: Chest pain Name of Procedure Performed Left heart catheterization bilateral cine coronary angiography. Left ventriculography. Procedure Details Procedure Details: Prior local anesthesia with 2% lidocaine to the right wrist and full informed consent obtained the patient was prepped and draped in usual fashion followed by placement of a six Kisw[place]ili sheath into the right radial artery followed by placement of a Candace catheter and a tiger catheter for ventriculography and cannulation of both right and left coronary ostia. Hemodynamics aortic blood pressure was 130/70. End-diastolic pressure was 16. There was no gradient across the aortic valve on pullback. Coronary anatomy: The RCA is a large vessel it is dominant. It has a very long calcified narrowing of about 95% stenosis along the trajectory of the proximal and mid RCA. The posterolateral branches in the PDA are large and normal. Excellent target vessels. Left main ostium has 20-30% stenosis. The distal left main from the distal 3rd to the origin of the LAD and circumflex has a 99% stenosis. This is very long and tubular lesion. Left anterior descending coronary artery at its midportion and proximal portions have a 75-80% lesion. It has limb dictations in flow. The diagonals are free of significant disease. Good target vessel in the mid LAD. Diagonals of good target vessels swell. The circumflex is a large vessel with a proximal and mid 95% stenosis as well. Excellent target vessels has a pertains to the marginal branches Ventriculography in the SAAVEDRA projection shows an EF of 65%. Impression: Three-vessel coronary artery disease with the associated left main disease. Excellent target vessels. Normal left ventricular ejection fraction. Moderately elevated left ventricular end-diastolic pressures. Recommendations: Patient will be referred for revascularization with coronary bypass grafting. Condition Good Disposition Still a Patient Date of Service: Mar 17, 2025 Billing Provider: EMA HILL Sr., MD Cardiology Common Codes: [id number] INP/OBS CARE (High) Cardiology Procedure Codes: 85982-COXC HEART CATH W/INTRA INJ EMA HILL Sr., MD Mar 17, 2025 18:11
[2025-03-17] MEDS ORDERED: HEPARIN DRIP/D5W 100UNITS/ML 250 ML IV SCH (18:15)
--- NOTE | 2025-03-17 19:25 | CONS ---
Pharmacy Clinical Information: NEW HEPARIN DRIP DRIP INITIATED IN CATHLAB RATE 1000 UNITS/HR (10 ML/HR) PT RECEIVED ON FLOOR @1900 WITH DRIP RUNNING AT 10 ML/HR NEXT aPTT SCHEDULED 03/18/25 @0100 COMMUNICATED WITH IAN HAMILTON PHARMACIST Mar 17, 2025 19:25
[2025-03-17] MEDS: TAMSULOSIN HYDROCHLORIDE 0.4 MG CAP PO SCH (19:42)
[2025-03-17] MEDS: ATORVASTATIN 20 MG TAB PO SCH (21:18)
[2025-03-17] MEDS: MELATONIN 5 MG TAB PO SCH (21:19)
[2025-03-18] VITALS (7 sets, daily range): BP systolic 123–142; BP diastolic 75–79; PULSE 70–95; RESP 18–19; TEMP 97.8–98.6; O2SAT 96–98
[2025-03-18 01:31] LABS: INR 1.09 (0.9-1.15); Partial Thromboplastin Time 30.5 SEC (24.5-34.5); Prothrombin Time 11.5 sec (9.3-11.8)
[2025-03-18] MEDS: HEPARIN SODIUM (PORCINE) 5000 UNITS/ML 1ML VIAL IV ONE (02:08)
[2025-03-18] MEDS: HEPARIN DRIP/D5W 100UNITS/ML 250 ML IV SCH ×2 (02:08→17:47)
[2025-03-18 06:54] LABS: Hematocrit 49.3 % (41.0-53.0); Hemoglobin 16.2 g/dL (13.5-17.5); Mean Corpuscular Hemoglobin 31.1 pg (28.0-32.0); Mean Corpuscular Volume 94.2 fL (80.0-100.0); Nucleated Red Blood Cells % 0.4 %
[2025-03-18 07:00] LABS: Potassium 4.1 mmol/L (3.5-5.1); Sodium 139 mmol/L (136-145)
[2025-03-18 07:01] LABS: Anion Gap 9 (5-15); Calcium 8.9 mg/dL (8.7-10.4); Carbon Dioxide 23 mmol/L (20-31)
[2025-03-18 07:06] LABS: BUN/Creatinine Ratio 6.4 (10.0-20.0); Blood Urea Nitrogen 8 mg/dL (9-23); Chloride 107 mmol/L (98-107); Glucose 88 mg/dL (74-106)
--- NOTE | 2025-03-18 09:47 | CONS ---
Pharmacy Clinical Information: HOLD FOR 1 HOUR + DECREASE HEPARIN RATE TO 10 ML/HR DUE TO APTT OF >139 PER RX PROTOCOL. NEXT APTT ON 03/18 AT 1644. NANNETTE DOMINIQUE CONFIRMED AND READ BACK KATIUSKA MCKEON PHARMACIST Mar 18, 2025 09:47
--- NOTE | 2025-03-18 10:17 | DVHPN2 ---
Progress Note Date Seen: Mar 18, 2025 Resident Creating Document: ROSE ZHOU RESIDENT Medical Necessity Reason Pt with a Central, PICC or Fol: No Subjective Review of Systems Patient seen and examined at the bedside. Patient is currently reporting dull chest pain and mild shortness of breath which is improved since admission but rest of ROS is negative. Objective vital signs Vital Sign Date Time Temp Pulse Resp B/P (MAP) Pulse Ox O2 Delivery O2 Flow Rate FiO2 03/18/25 05:00 98.6 79 18 141/76 (97) 97 98.6 03/17/25 20:00 Room Air* 0 21 Total Intake and Output 03/17/25 03/17/25 03/18/25 14:59 22:59 06:59 Intake Total 100 ml 1100 ml Balance 100 ml 1100 ml medications Current Medications Medications Dose Ordered Sig/Rick Route Start Time Stop Time Status Last Admin Dose Admin Nitroglycerin 0.4 mg Q5MINP PRN SL 03/16/25 22:30 Morphine Sulfate 2 mg Q30M PRN IV 03/16/25 22:30 Acetaminophen 650 mg Q6HPRN PRN PO 03/16/25 22:30 Acetaminophen/ Hydrocodone Bitart 1 tab Q6HP PRN PO 03/16/25 22:30 Aspirin 81 mg DAILY PO 03/17/25 10:00 03/18/25 09:26 81 MG Hydralazine HCl 10 mg Q4HPRN PRN IV 03/16/25 22:30 Atorvastatin Calcium 20 mg HS PO 03/17/25 22:00 03/17/25 21:18 20 MG Tamsulosin HCl 0.4 mg QPM PO 03/17/25 18:00 03/17/25 19:42 0.4 MG Albuterol 2.5 mg Q4HPRN PRN NEB 03/17/25 00:45 Ipratropium [place] 0.5 mg Q4HPRN PRN NEB 03/17/25 00:45 Melatonin 5 mg HS PO 03/17/25 22:00 03/17/25 21:19 5 MG Dextrose/Sodium Chloride 1,000 ml @ 70 mls/hr [id number] IV 03/17/25 11:45 03/18/25 02:09 70 MLS/HR Heparin Sodium/ Dextrose 250 ml @ 10 mls/hr Q24H IV 03/18/25 09:45 Examination Pt is lying on bed General Appearance: Alert, Oriented X3, Cooperative, Not in acute distress HEENT: Atraumatic, Mucous membranes moist/pink Respiratory: Clear to auscultation, Normal air movement, No added sounds Cardiovascular: Regular rate, Normal S1, Normal S2, No murmurs Abdominal: Active bowel sounds, Soft, no distention, no tenderness Extremities: No edema, Normal pulses, No tenderness/swelling Skin: No Significant rash, except past surgical scars Neuro: Normal speech, sensorimotor deficits none Psych/Mental Status: Mental status NL, Mood NL Nurse was there as cartography/mapping technician during examination laboratory and microbiology Laboratory Tests 03/18/25 05:13 Test 03/18/25 05:13 Range/Units Serum Glucose 88 74-106 mg/dL Labs and/or images reviewed: Labs reviewed by me, Image(s) reviewed by me Problem List/Assessment/Plan Problem List/Assessment/Plan ACS 3-vessel CAD with the associated left main disease. NSTEMI type 1 Hypertension HLD Plan/recommendations We will continue with the following plan/recommendations (Dr. Hill): Echocardiogram to evaluate cardiac function Chest pain protocol Aspirin Lipitor Blood pressure management Aggressive risk factor modification Heparin drip Ventriculography in the SAAVEDRA projection shows an EF of 65%. Angiogram showed 3-vessel CAD with the associated left main disease. Excellent target vessels. Normal LVEF. Moderately elevated LVEDP. Recommendations: Patient will be referred for revascularization with coronary bypass grafting. Discussed with Dr. Hill. Plan discussed with: Patient Date of Service: Mar 18, 2025 Billing Provider: EMA HILL Sr., MD Common Visit Codes: [id number] CARE 30-74 MIN ROSE ZHOU RESIDENT Mar 18, 2025 10:17
--- NOTE | 2025-03-18 13:06 | DVHSR ---
APPROVED REPORT EXAM: Two-dimensional and M-mode echocardiogram with Doppler and color Doppler. Blood Pressure: 142/63 mmHg INDICATION Chest Pain elevated trops RISK FACTORS Height: 69, Weight: 190 DIMENSIONS LVDd 4.2 (3.8-5.7cm) LA (2D) 3.6 (1.9-4.0cm) Aortic Root 3.8 (2.0-3.7cm) LVDs 2.9 (2.5-4.0cm) LA (MM) (1.9-4.0cm) Aortic Cusp Exc 1.9 (1.5-2.0cm) EF (%) 60.0 (55-70%) Rt. Atrium 4.0 (1.9-4.0cm) Asc. Aorta cm Mitral Valve Mitral Mitral Stenosis E wave 0.72m/s MV Mean GR. mmHg A wave 1.10m/s MV Peak GR. mmHg E/A ratio 0.7 2D MVA cm2 DECEL Time 196ms PRESS 1/2 Time 70ms IVRT ms Dop MVA 3.15cm2 Aortic Valve Aortic Valve Aortic Stenosis V1 0.73m/s AO Mean GR. 2mmHg V2 1.00m/s AO Peak GR. 4mmHg LVOT Diameter 2.1 (1.8-2.4cm) Doppler JOVITA 2.53cm2 Pulmonic Valve V2 0.91m/s Conclusion Technically good study. Sinus rhythm. Mild aortic root enlargement. Valves appear to be structurally normal. Left ventricular function is preserved at 60% with normal RV function. Dopplers unremarkable. No pericardial effusion masses or vegetations
--- NOTE | 2025-03-18 14:43 | DVHPN2 ---
Progress Note - Dictate Date Seen: Mar 18, 2025 Medical Necessity Reason Pt with a Central, PICC or Fol: No Subjective Status post coronary angiogram showed a triple-vessel disease pending transferred to higher level of care for coronary artery bypass graft surgery. Patient currently on IV heparin drip stable. No complaints of shortness for breath or chest pain. Other review of systems reviewed normal. vital signs Vital Sign Date Time Temp Pulse Resp B/P (MAP) Pulse Ox O2 Delivery O2 Flow Rate FiO2 03/18/25 13:00 98.0 70 19 142/79 (100) 98 98.0 03/18/25 08:00 Room Air* 0 21 Total Intake and Output 03/17/25 03/17/25 03/18/25 15:00 23:00 07:00 Intake Total 100 ml 1100 ml Balance 100 ml 1100 ml medications Current Medications Medications Dose Ordered Sig/Rick Route Start Time Stop Time Status Last Admin Dose Admin Nitroglycerin 0.4 mg Q5MINP PRN SL 03/16/25 22:30 Morphine Sulfate 2 mg Q30M PRN IV 03/16/25 22:30 Acetaminophen 650 mg Q6HPRN PRN PO 03/16/25 22:30 Acetaminophen/ Hydrocodone Bitart 1 tab Q6HP PRN PO 03/16/25 22:30 Aspirin 81 mg DAILY PO 03/17/25 10:00 03/18/25 09:26 81 MG Hydralazine HCl 10 mg Q4HPRN PRN IV 03/16/25 22:30 Atorvastatin Calcium 20 mg HS PO 03/17/25 22:00 03/17/25 21:18 20 MG Tamsulosin HCl 0.4 mg QPM PO 03/17/25 18:00 03/17/25 19:42 0.4 MG Albuterol 2.5 mg Q4HPRN PRN NEB 03/17/25 00:45 Ipratropium [place] 0.5 mg Q4HPRN PRN NEB 03/17/25 00:45 Melatonin 5 mg HS PO 03/17/25 22:00 03/17/25 21:19 5 MG Dextrose/Sodium Chloride 1,000 ml @ 70 mls/hr [id number] IV 03/17/25 11:45 03/18/25 02:09 70 MLS/HR Heparin Sodium/ Dextrose 250 ml @ 10 mls/hr Q24H IV 03/18/25 09:45 objective HEENT neck supple no JVD. Heart regular rate and rhythm S1-S2. Lungs without rales wheezes fair air movement. Abdomen soft nontender positive bowel sounds. Extremities no edema positive pulses laboratory and microbiology Laboratory Tests 03/18/25 05:13 Test 03/18/25 05:13 Range/Units Serum Glucose 88 74-106 mg/dL Assessment/Plan Status post coronary angiogram showing severe triple-vessel coronary artery disease. Continue IV heparin drip while he is waiting for transferred to higher level of care. We will turn off the drip during transport. Continue aspirin statin and other medications as he is on. Discussed with the patient regarding transfer and his angiogram findings. He has verbalized understanding of these and agree with the care plan as outlined. Problems(with codes): (1) Chest pain (2) Elevated troponin Plan discussed with: Patient, Other NADEEM DIAMOND MD Mar 18, 2025 14:43
[2025-03-18 16:53] LABS: INR 1.14 (0.9-1.15); Partial Thromboplastin Time 59.6 SEC (24.5-34.5); Prothrombin Time 11.9 sec (9.3-11.8)
--- NOTE | 2025-03-19 15:18 | DVHDS2 ---
Discharge Summary Date of Admission Mar 16, 2025 at 22:19 Date of Discharge: Mar 18, 2025 Labs/Diagnostic Data: Laboratory Results Test 03/18/25 16:24 03/18/25 05:13 03/17/25 14:05 03/17/25 05:06 Prothrombin Time 11.9 sec (9.3-11.8) Prothrombin Time INR 1.14 (0.9-1.15) Activated Partial Thromboplast Time 59.6 SEC (24.5-34.5) White Blood Count 10.7 10^3/uL (4.4-10.8) Red Blood Count 5.23 10^6/uL (4.5-5.90) Hemoglobin 16.2 g/dL (13.5-17.5) Hematocrit 49.3 % (41.0-53.0) Mean Corpuscular Volume 94.2 fL (80.0-100.0) Mean Corpuscular Hemoglobin 31.1 pg (28.0-32.0) Mean Corpuscular Hemoglobin Concent 32.9 g/dL (32.0-36.0) Red Cell Distribution Width 15.7 % (11.8-14.3) Platelet Count 227 10^3/uL (140-450) Mean Platelet Volume 8.5 fL (6.9-10.8) Neutrophils (%) (Auto) 60.9 % (37.0-80.0) Lymphocytes (%) (Auto) 25.1 % (10.0-50.0) Monocytes (%) (Auto) 7.4 % (0.0-12.0) Eosinophils (%) (Auto) 5.8 % (0.0-7.0) Basophils (%) (Auto) 0.8 % (0.0-2.0) Neutrophils # (Auto) 6.5 10 ^3/uL (1.6-8.6) Lymphocytes # (Auto) 2.7 10 ^3/uL (0.4-5.4) Monocytes # (Auto) 0.8 10 ^3/uL (0-1.3) Eosinophils # (Auto) 0.6 10 ^3/uL (0-0.8) Basophils # (Auto) 0.1 10 ^3/uL (0-0.2) Nucleated Red Blood Cells 0.4 % Sodium Level 139 mmol/L (136-145) Potassium Level 4.1 mmol/L (3.5-5.1) Chloride Level 107 mmol/L (98-107) Carbon Dioxide Level 23 mmol/L (20-31) Anion Gap 9 (5-15) Blood Urea Nitrogen 8 mg/dL (9-23) Creatinine 1.25 mg/dL (0.700-1.30) Glomerular Filtration Rate Calc 60 mL/min (>90) BUN/Creatinine Ratio 6.4 (10.0-20.0) Serum Glucose 88 mg/dL (74-106) Calcium Level 8.9 mg/dL (8.7-10.4) Troponin I High Sensitivity 134 ng/L (</=54) Magnesium Level 2.3 mg/dL (1.6-2.6) Triglycerides Level 143 mg/dL (< 150) Cholesterol Level 124 mg/dL (< 200) LDL Cholesterol 69 mg/dL (< 100) HDL Cholesterol 37 mg/dL (40-59) Thyroid Stimulating Hormone (TSH) 4.52 uIU/mL (0.55-4.78) Test 03/16/25 19:09 03/16/25 06:46 Total Bilirubin 0.7 mg/dL (0.2-1.0) Aspartate Amino Transferase (AST) 18 U/L (13-40) Alanine Aminotransferase (ALT) 18 U/L (7-40) Alkaline Phosphatase 56 U/L (46-116) B-Type Natriuretic Peptide 71.30 pg/mL (0-100) Total Protein 6.5 g/dL (5.7-8.2) Albumin 3.9 g/dL (3.2-4.8) Urine Color Light-yellow (Yellow) Urine Clarity Clear (Clear) Urine pH 6.0 (5.0-9.0) Urine Specific [place] 1.017 (1.001-1.035) Urine Protein Negative (Negative) Urine Ketones Negative (Negative) Urine Blood Negative /uL (Negative) Urine Nitrite Negative (Negative) Urine Bilirubin Negative (Negative) Urine Urobilinogen Normal mg/dL (Negative) Urine Leukocyte Esterase Negative /uL (Negative) Urine RBC 1 /hpf (0 - 3) Urine Microscopic WBC 2 /HPF (0-3) Urine Squamous Epithelial Cells Few /hpf (<5) Urine Bacteria None seen /hpf (None Seen) Urine Mucus Few (None Seen) Urine Glucose Normal mg/dL (Normal) Other Laboratory Tests 03/18/25 05:13 Brief Hx & Hospital Course: 74-year-old male with past medical history of hypertension, hyperlipidemia, enlarged prostate presents with complaints of chest pain radiating to the jaw x3 weeks. Patient was transferred from [facility] as higher level of care for cardiac evaluation for elevated troponin levels and chest pain. Chest pain has remained constant pressure. 6/10. During the emergency department evaluation troponins elevated 180/181/179. The patient denies any fevers, chills, dizziness, syncope, shortness of breath, palpitations, nausea, vomiting, leg swelling. Is not being followed by Cardiology. He is admitted and evaluated by security field supervisor and underwent a coronary angiogram revealed severe triple-vessel coronary artery disease. He is started on cardiac medications. Patient started on IV heparin and recommended transferred to higher level of care for coronary artery bypass graft. While in the hospital patient remained asymptomatic stable without any acute cardiopulmonary issues. Patient subsequently transferred to [facility] for higher level of care for coronary artery bypass graft surgery in stable condition. Operations or Procedures Operative Report - 2 Report Details Date: 03/17/25 Preop Diagnosis: Chest pain Postop Diagnosis: Severe coronary artery disease Surgeon: Rachid Hill MD Anesthesiologist: Conscious sedation Anesthesia: Mac, Local Consent: The patient was informed of the risks and benefits of the procedure. These include but are not limited to complications of anesthesia, postoperative infection, incomplete relief of symptoms, recurrence of symptoms, damage to blood vessels, nerves and tendons, deep venous thrombosis, pulmonary embolism and possible need for repeat surgery in the future. Complications: No complications Findings: Severe three-vessel coronary artery disease Indications for Surgery: Chest pain Name of Procedure Performed Left heart catheterization bilateral cine coronary angiography. Left ventriculography. Procedure Details Procedure Details: Prior local anesthesia with 2% lidocaine to the right wrist and full informed consent obtained the patient was prepped and draped in usual fashion followed by placement of a six Iranian sheath into the right radial artery followed by placement of a Candace catheter and a tiger catheter for ventriculography and cannulation of both right and left coronary ostia. Hemodynamics aortic blood pressure was 130/70. End-diastolic pressure was 16. There was no gradient across the aortic valve on pullback. Coronary anatomy: The RCA is a large vessel it is dominant. It has a very long calcified narrowing of about 95% stenosis along the trajectory of the proximal and mid RCA. The posterolateral branches in the PDA are large and normal. Excellent target vessels. Left main ostium has 20-30% stenosis. The distal left main from the distal 3rd to the origin of the LAD and circumflex has a 99% stenosis. This is very long and tubular lesion. Left anterior descending coronary artery at its midportion and proximal portions have a 75-80% lesion. It has limb dictations in flow. The diagonals are free of significant disease. Good target vessel in the mid LAD. Diagonals of good target vessels swell. The circumflex is a large vessel with a proximal and mid 95% stenosis as well. Excellent target vessels has a pertains to the marginal branches Ventriculography in the SAAVEDRA projection shows an EF of 65%. Impression: Three-vessel coronary artery disease with the associated left main disease. Excellent target vessels. Normal left ventricular ejection fraction. Moderately elevated left ventricular end-diastolic pressures. Recommendations: Patient will be referred for revascularization with coronary bypass grafting. Condition Good Condition at Discharge: Stable Final Diagnosis/Problems List Severe coronary artery disease status post coronary angiogram recommending coronary artery bypass graft surgery Discharge Disposition: Acute Care Facility Discharge Instruct/Medications Diet: Consistent carbohydrate, Cardiac 2g Na,low cholest Activity: Light activity Medications: See transfer med reconciliation list No Active Prescriptions or Reported Meds Discharge Statement: "Patient was advised to return to the ER or call 911 if any headaches, dizziness, shortness of breath, chest pain, abdominal pain, bleeding, fevers, or worsening of medical condition. Patient was counseled about treatment plan, medications, possible side effects, patientverbalized understanding. All questions were answered to the best of my ability. This discharge took greater then 30 minutes in planning, reviewing documentation, counseling the patient, and discussing with other team members." ASSESSMENT ASSESSMENT Assessment Severe coronary artery disease status post coronary angiogram recommending coronary artery bypass graft surgery NADEEM DIAMOND MD Mar 19, 2025 15:18
--- NOTE | 2025-03-22 07:11 | ECG ---
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
== END 2025-03-18 18:40 | disposition short-term general hospital (02) | DRG 282 ==
LOC: EDBD 18:13 → ER 18:13 → OVERFLOW 22:19 → TELE-CENTR 03-17 15:14
PROVIDERS: ADMIT Internal Medicine; ATTEND Internal Medicine
PROC: 4A023N8 Measurement of Cardiac Sampling and Pressure, Bilateral, Percutaneous Approach (ICD-10-PCS; principal; 2025-03-17)
PROC: B211YZZ Fluoroscopy of Multiple Coronary Arteries using Other Contrast (ICD-10-PCS; 2025-03-17)
PROC: B215YZZ Fluoroscopy of Left Heart using Other Contrast (ICD-10-PCS; 2025-03-17)
DX: I21.4 Non-ST elevation (NSTEMI) myocardial infarction (principal); E78.5 Hyperlipidemia, unspecified; I10 Essential (primary) hypertension; I25.110 Atherosclerotic heart disease of native coronary artery with unstable angina pectoris; N40.0 Benign prostatic hyperplasia without lower urinary tract symptoms; Z79.899 Other long term (current) drug therapy; Z87.891 Personal history of nicotine dependence; Z88.0 Allergy status to penicillin; Z79.82 Long term (current) use of aspirin
CPT/HCPCS: 36415; 71045; 80048; 80053; 80061; 81001; 83735; 83880; 84443; 84484; 85025; 85610; 85730; 93005; 93306; 93458; 99152; G0378; J2250; Q9967